=== PATIENT | female | born 1950 | race Caucasian/White ===

== ENCOUNTER 2019-05-07 12:38 | Day surgery (SDC) | payer MEDICARE, SELFPAY ==
--- NOTE | 2019-05-07 | DI.RAD.S_ITS ---
PROCEDURE: XR KUB INDICATIONS: KUB TECHNIQUE: One view of the abdomen acquired. COMPARISON: [facility], CT, CT KUB, 02/10/2019, 19:35. [facility], CR, XR ABDOMEN 1 VIEW, 03/12/2019, 11:20. [facility], CR, XR ABDOMEN 1 VIEW, 03/02/2019, 12:34. [facility], CR, XR ABDOMEN 1 VIEW, 04/13/2019, 11:44. FINDINGS: Surgical changes and devices: None. Bowel: Bowel gas pattern is normal. Moderate-sized hiatal hernia is partially visualized. Soft tissues: Small calculi in kidneys bilaterally. Left kidney is partially obscured by overlying bowel. Visualized solid organ contours appear normal in size. Bones: No suspicious bony lesions. IMPRESSION: Small renal calculi in kidneys bilaterally. Dictated by: Amy Mascorro M.D. on 05/07/2019 at 15:09 Approved by: Amy Mascorro M.D. on 05/07/2019 at 15:12
[2019-05-07] MEDS: LACTATED RINGERS 1,000 ML 42 ML IV (14:40)
[2019-05-07 14:51] VITALS: BP 123/80; PULSE 90; RESP 14; TEMP 37.1; O2SAT 98; BMI 21.8
--- NOTE | 2019-05-07 16:41 | PM.PREOP ---
Pre-operative Note Interval Note History & Physical reviewed/Exam performed by Physician: Yes Changes to H&P: No H&P completed within 30 days and has changed as indicated here:: No changes to the history and physical examinations scanned into file.
[2019-05-07] MEDS: CEFAZOLIN 1 GM/50 ML FROZ.PIGGY IV (16:55)
--- NOTE | 2019-05-07 17:08 | SUR.OPER ---
Supine on padded OR bed, head on pillow, arms secured on padded arm boards at <90 degrees abduction, legs uncrossed, safety belt at thigh, tape over blanket over lower legs.
[2019-05-07 17:35] VITALS: BP 144/83; PULSE 60; RESP 15; TEMP 36.2; O2SAT 99
[2019-05-07 17:40] VITALS: BP 137/79; PULSE 54; RESP 16; O2SAT 97
[2019-05-07 17:45] VITALS: BP 135/79; PULSE 54; RESP 15; O2SAT 99
[2019-05-07 17:59] VITALS: BP 109/78; PULSE 64; RESP 16; TEMP 36.3; O2SAT 98
--- NOTE | 2019-05-07 18:05 | PM.OP.1 ---
Operative Date/Time/Diagnoses Date of procedure: 05/07/19 Time of procedure: 18:05 Pre-op diagnosis: 7 mm left renal calculus. History of urosepsis. Post-op diagnosis: same Procedure & Clinicians Procedure: 1. Left extracorporeal shockwave lithotripsy. Same procedure as scheduled: Yes Indications: 1. 8 mm left renal calculus. 2. History of recurrent pyelonephritis/urosepsis. Surgeon: Sita Mckenna Click Yes if Unassisted: Yes Anesthesia Type: General Operative Notes Findings: 1. 8 mm interpolar irregular left renal calculus. Closure Type: not applicable Specimen(s): none sent Estimated Blood Loss (mL): 0 Blood products transfused: none Tourniquet time (min): 0 Procedure in detail: The patient was positioned supine and administered general anesthesia. The above-described stone was then localized in the X, Y and Z planes using fluoroscopy. Lithotripsy was then commenced at minimal power level for total of 200 shocks. A 2 minutes pause was then conducted. Lithotripsy was then resumed at minimal power level and gradually increased to maximal power level of 7.5. The stone in its fragments were really localize numerous times throughout the case with excellent resultant radiographic evidence of fragmentation. The patient was then awakened transferred to [facility] and transferred to recovery in stable condition. Complications: none Post-operative Condition: stable Disposition: PACU Plan for aftercare: Discharge home
--- NOTE | 2019-05-07 18:06 | PM.OP.1 ---
Operative Date/Time/Diagnoses Date of procedure: 05/07/19 Time of procedure: 18:06 Pre-op diagnosis: 1. 7 mm left renal calculus. 2. History of urosepsis. Post-op diagnosis: same Procedure & Clinicians Procedure: Left extracorporeal shockwave lithotripsy Same procedure as scheduled: Yes Indications: 1. 7 mm left renal calculus. 2. History of urosepsis. Surgeon: Sita Mckenna Click Yes if Unassisted: Yes Anesthesia Type: General Operative Notes Findings: 7 mm left renal calculus Closure Type: not applicable Specimen(s): none sent Estimated Blood Loss (mL): 0 Tourniquet time (min): 0 Procedure in detail: The patient was positioned in supine and was administered general anesthesia. The above-described calculus was then localized in the X, Y and Z plane using the fluoroscopy. Lithotripsy was then commenced at minimal power level for total of 200 shocks. A 2 minutes pause was then conducted. Lithotripsy was then resume and were reached a maximum power level of 7. The stone and its fragments were relocalized numerous times throughout the case. A total of 1500 shocks were delivered to the stone with excellent evidence of fragmentation. The patient was then awakened transferred to a gurney and transferred to the recovery area in stable condition. Complications: none Post-operative Condition: stable Disposition: PACU Plan for aftercare: Discharge home.
[2019-05-07 18:25] VITALS: BP 125/62; PULSE 60; RESP 16; TEMP 36.1; O2SAT 99
== END 2019-05-07 18:25 | disposition home or self-care (01) ==
PROVIDERS: PCP Nurse Practitioner Family; Referring Provider Specialist; Visit Provider Specialist
PROC: (CPT 50590; principal; 2019-05-07 16:00)
DX: N20.0 Calculus of kidney (principal); Z87.440 Personal history of urinary (tract) infections
CPT/HCPCS: 50590; 74018; J2250; J2704; J3010